=== PATIENT | male | born 2000 | race Caucasian/White ===

== ENCOUNTER 2020-06-07 23:03 | Emergency (ER) | payer BC ==
[~2020-06-07] VITALS: Ht 182.9 cm; Wt 72.6 kg
--- NOTE | 2020-06-07 23:10 | NUR ---
Pt seen by MD at this time
[2020-06-07] MEDS ORDERED: diphenhydrAMINE 25 MG CAP PO ONE ×2 (23:15→23:20)
--- NOTE | 2020-06-07 23:23 | NUR ---
Patient given 25mg of Benadryl PO. Discharge instruction given and confirmed to be understood by patient. Stable condition.
[2020-06-07 23:24] VITALS: BP 143/68
== END 2020-06-07 23:25 | disposition home or self-care (01) ==
LOC: ER 23:03
DX: T78.3XXA Angioneurotic edema, initial encounter (principal); T78.1XXA Other adverse food reactions, not elsewhere classified, initial encounter; X58.XXXA Exposure to other specified factors, initial encounter; Z91.018 Allergy to other foods
CPT/HCPCS: 99282; Q0163; A4663

== ENCOUNTER 2021-05-28 00:56 | Emergency (ER) | payer SELFPAY ==
[~2021-05-28] VITALS: Ht 182.9 cm; Wt 74.8 kg
--- NOTE | 2021-05-28 01:10 | NUR ---
DR WILKINSON IS AT BEDSIDE FOR MSE.
--- NOTE | 2021-05-28 01:15 | NUR ---
PER ERMD, PLACE PT ON 30 MIN OBSERVATION. PT RESTING AT THIS TIME, NO SIGNS OF DISTRESS.
--- NOTE | 2021-05-28 01:35 | NUR ---
PATIENT'S HR HAS DECREASED, AND HE IS NOW SINUS RHYTHM ON THE 70'S. NO SIGNS OF DISTRESS.
--- NOTE | 2021-05-28 01:52 | NUR ---
PATIENT HAS BEEN CLEARED FOR DC BY ERMAinsley. Patient discharged to home in stable condition. Written and verbal after care instructions given. Patient verbalizes understanding of instructions. Stressed follow up or return to ER for worsening s/s. AMBULATED OUT OF ED IN STEADY GAIT.
[2021-05-28 01:54] VITALS: BP 123/66
== END 2021-05-28 01:54 | disposition home or self-care (01) ==
LOC: ER 00:58
DX: R00.2 Palpitations (principal); F41.9 Anxiety disorder, unspecified; Z88.0 Allergy status to penicillin; Z91.018 Allergy to other foods
CPT/HCPCS: 93005; A4663